=== PATIENT | female | born 1940 | race Caucasian/White ===

== ENCOUNTER → 2019-03-14 | Outpatient (CLI) | payer MEDICARE, BC ==
--- NOTE | 2019-03-14 18:45 | US ---
EXAMINATION TYPE: US kidneys/renal and bladder DATE OF EXAM: 03/14/2019 COMPARISON: CT 04/30/2015 CLINICAL HISTORY: 78-year-old female N28.1 Left renal cyst. TECHNIQUE: Multiple sonographic images of the kidneys and bladder are obtained. FINDINGS: EXAM MEASUREMENTS: Right Kidney: 11.3 X 4.7 X 4.8 cm Left Kidney: 10.5 X 4.8 X 4.5 cm No hydronephrosis on either side. Right Kidney: small cortical cyst medial upper pole 1.0 x 0.5 x 0.6 cm Left Kidney: 3.4 x 4.1 x 4.1 cm cyst mid/lower Bladder: Underdistention of the bladder limits evaluation. There may be mild circumferential wall thi ckening. Bilateral Jets seen: Yes Post Void Residual Volume: 4.6 mL Normal Post Void Residual: Yes IMPRESSION: 1. No hydronephrosis. 2. 4.1 cm simple cyst mid to lower pole left kidney. Tiny 1 cm cyst in the right kidney. 3. Mild circumferential bladder wall thickening may relate to under distention or cystitis. Clinicall y correlate.
== END | disposition home or self-care (01) ==
LOC: RADUSWWP 15:16
PROVIDERS: ATTEND Urology
DX: N28.1 Cyst of kidney, acquired (principal); N32.89 Other specified disorders of bladder; Z88.0 Allergy status to penicillin
CPT/HCPCS: 76770

== ENCOUNTER → 2021-12-01 | Outpatient (CLI) | payer MEDICARE ==
--- NOTE | 2021-12-02 10:19 | US ---
EXAMINATION TYPE: US kidneys/renal and bladder DATE OF EXAM: 12/01/2021 COMPARISON: 03/14/2019 CLINICAL HISTORY: 81-year-old female R10.9 ABD PAIN,N28.1 RENAL CYST. F/U renal cysts, pt states LUQ pain TECHNIQUE: Multiple sonographic images of the kidneys and bladder are obtained. FINDINGS: EXAM MEASUREMENTS: Right Kidney: 11.5 x 5.3 x 4.5 cm Left Kidney: 10.5 x 5.2 x 4.9 cm Right Kidney: Cyst mid/medial= 1.0 x 0.9 x 0.7 cm Left Kidney: Cyst lower pole= 4.5 x 4.7 x 4.4 cm, slightly larger in size (versus 4.1 cm, previously ) No hydronephrosis on either side. Bladder: Underdistention Limited evaluation. Bilateral Jets seen: No Incidental finding accessory splenule IMPRESSION: No hydronephrosis. A couple renal cysts, largest on the left measuring 4.7 cm has slightly increased in size from 4.1 cm, previously.
== END | disposition home or self-care (01) ==
LOC: RADUSWWP 16:12
PROVIDERS: ATTEND Urology
DX: N28.1 Cyst of kidney, acquired (principal)
CPT/HCPCS: 76770

== ENCOUNTER 2022-10-08 10:37 | Emergency (ER) | payer MEDICARE ==
[2022-10-08 10:47] VITALS: BP 160/74; PULSE 89; RESP 16; TEMP 98.1
--- NOTE | 2022-10-08 11:19 | ED ---
Abdominal Pain HPI - General Chief Complaint: Abdominal Pain Stated Complaint: bilat leg pain Time Seen by Provider: 10/08/22 10:58 Source: patient Mode of arrival: ambulatory Limitations: no limitations - History of Present Illness Initial Comments: This 81-year-old female with a past medical history of diabetes mellitus and hypertension who presents to the emergency department with multiple complaints. Her main complaint is bilateral lower extremity pain. She denies injury. Reports pain over the past 2 years worsening over the past 2 weeks. Reports a burning sensation that starts at her thighs and moves all the way down to her feet. Pain is worse while she is sleeping at night. It is better with activity. Taking Motrin 600 with some relief. She denies numbness and tingling. Denies history of DVT and PE. Denies recent airplane travel or long car rides. Is a former smoker, quit 30 years ago. Patient also reports intermittent burning in her lower abdomen. States it feels like a urinary tract infection which she has history of. Denies burning with urination and blood in the urine however does admit to increased urinary freque ncy and urgency. She denies fever, chills, vomiting, side pain, back pain. Does admit to nausea. Of note, patient and her son mention noncompliance with metformin. Patient does not like how big the pill is. She does not take her medication. She does not check her blood sugar home. She reports last hemoglobin A1c of 12 last month her primary care office. Patient reports increased thirst and decreased appetite. No upper respiratory symptoms, chest pain, SOB. Denies constipation, diarrhea, blood in stool. - Related Data Previous Rx's Medication Instructions Recorded Ibuprofen [Motrin] 800 mg PO Q6HR #20 tab 10/08/22 Allergies Allergy/AdvReac Type Severity Reaction Status Date / Time Penicillins AdvReac Rash/Hives Verified 10/08/22 10:42 Review of Systems ROS Statement: Those systems with pertinent positive or pertinent negative responses have been documented in the HPI. ROS Other: All systems not noted in ROS Statement are negative. Past Medical History Past Medical History: Diabetes Mellitus, Hypertension History of Any Multi-Drug Resistant Organisms: None Reported Past Surgical History: Hysterectomy Past Psychological History: No Psychological Hx Reported Smoking Status: Former smoker Past Alcohol Use History: None Reported Past Drug Use History: None Reported General Exam Limitations: no limitations General appearance: alert, in no apparent distress Head exam: Present: atraumatic, normocephalic, normal inspection Eye exam: Present: normal appearance, PERRL, EOMI. Absent: scleral icterus, conjunctival injection, periorbital swelling Respiratory exam: Present: normal lung sounds bilaterally. Absent: respiratory distress, wheezes, rales, rhonchi, stridor Cardiovascular Exam: Present: regular rate, normal rhythm, normal heart sounds. Absent: systolic murmur, diastolic murmur, rubs, gallop, clicks GI/Abdominal exam: Present: soft, normal bowel sounds. Absent: distended, tenderness, guarding, rebound, rigid Extremities exam: Present: normal inspection, full ROM, normal capillary refill. Absent: tenderness, pedal edema, joint swelling, calf tenderness Neurological exam: Present: alert, oriented X3, CN II-XII intact Psychiatric exam: Present: normal affect, normal mood Skin exam: Present: warm, dry, intact, normal color. Absent: rash Course Vital Signs 10/08/22 10:42 Temperature 98.1 F Pulse Rate 89 Respiratory 16 Rate Blood Pressure 160/74 O2 Sat by Pulse 99 Oximetry Medical Decision Making - Medical Decision Making This 81-year-old female presenting with multiple complaints. Patient looks well and in no apparent distress. No bilateral calf tenderness or other LE tenderness. No overlying skin abnormalities, no swelling. Neurovascularly intact. Full strength. Ultrasound of the bilateral lower extremities with Doppler was obtained and interpreted by me which is negative for DVT. Laboratory studies obtained. There is no leukocytosis. Glucose is 266, peripheral to 80 while at this visit. Liver enzymes are within normal limits. Urinalysis reflects poor blood sugar control with 4+ glucose and 1+ ketones. With complaint of intermittent abdominal burning and noninfectious urine, acute intra-abdominal process could not be ruled out. CT of the abdomen and pelvis with contrast was obtained and interpreted by me which shows hepatic steatosis with subtle contour nodularity, also seen along some portions of the liver, correlate for developing cirrhosis. In addition, there is splenomegaly, large- caliber to the portal vein, and recanalization of umbilical vein. Findings com patible with portal venous hypertension. Patient reports minimal alcohol use, usually a cocktail or 2 on holidays. Results discussed with patient. Pain likely related to neuropathy. I suspect patient is endorsing increased urinary frequency due to uncontrolled diabetes. Patient and I spoke in detail about primary care follow-up for alternative medications for blood sugar control. Patient will also speak with her primary care provider regarding neuropathy like pain. Patient will also be referred to GI specialist for incidental CT findings today. Patient verbalizes understanding. Will send her home with short course Motrin for pain. Dr. Miller is my attending. - Lab Data Result diagrams: 10/08/22 11:15 10/08/22 11:15 Lab Results 10/08/22 10/08/22 10/08/22 Range/Units 11:15 11:15 11:15 WBC 3.8 (3.8-10.6) k/uL RBC 4.71 (3.80-5.40) m/uL Hgb 13.1 (11.4-16.0) gm/dL Hct 38.3 (34.0-46.0) % MCV 81.2 (80.0-100.0) fL MCH 27.7 (25.0-35.0) pg MCHC 34.1 (31.0-37.0) g/dL RDW 14.5 (11.5-15.5) % Plt Count 95 L (150-450) k/uL MPV 8.0 Neutrophils % 63 % Lymphocytes % 26 % Monocytes % 7 % Eosinophils % 2 % Basophils % 1 % Neutrophils # 2.4 (1.3-7.7) k/uL Lymphocytes # 1.0 (1.0-4.8) k/uL Monocytes # 0.3 (0-1.0) k/uL Eosinophils # 0.1 (0-0.7) k/uL Basophils # 0.0 (0-0.2) k/uL Manual Slide Review Performed RBC Morphology Normal Sodium 137 (137-145) mmol/L Potassium 3.9 (3.5-5.1) mmol/L Chloride 105 (98-107) mmol/L Carbon Dioxide 23 (22-30) mmol/L Anion Gap 9 mmol/L BUN 16 (7-17) mg/dL Creatinine 0.50 L (0.52-1.04) mg/dL Est GFR (CKD-EPI)AfAm >90 (>60 ml/min/1.73 sqM) Est GFR (CKD-EPI)NonAf >90 (>60 ml/min/1.73 sqM) Glucose 266 H (74-99) mg/dL Plasma Lactic Acid Breezy 1.2 (0.7-2.0) mmol/L Calcium 9.8 (8.4-10.2) mg/dL Magnesium 1.6 (1.6-2.3) mg/dL Total Bilirubin 0.9 (0.2-1.3) mg/dL AST 24 (14-36) U/L ALT 22 (4-34) U/L Alkaline Phosphatase 116 (38-126) U/L NT-Pro-B Natriuret Pep pg/mL Total Protein 7.8 (6.3-8.2) g/dL Albumin 4.4 (3.5-5.0) g/dL Lipase 239 (23-300) U/L Urine Color Urine Appearance (Clear) Urine pH (5.0-8.0) Ur Specific [place] (1.001-1.035) Urine Protein (Negative) Urine Glucose (UA) (Negative) Urine Ketones (Negative) Urine Blood (Negative) Urine Nitrite (Negative) Urine Bilirubin (Negative) Urine Urobilinogen (<2.0) mg/dL Ur Leukocyte Esterase (Negative) Urine WBC (0-5) /hpf Ur Squamous Epith Cells (0-4) /hpf Coronavirus (PCR) (Not Detectd) 10/08/22 10/08/22 10/08/22 Range/Units 11:15 11:25 11:31 WBC (3.8-10.6) k/uL RBC (3.80-5.40) m/uL Hgb (11.4-16.0) gm/dL Hct (34.0-46.0) % MCV (80.0-100.0) fL MCH (25.0-35.0) pg MCHC (31.0-37.0) g/dL RDW (11.5-15.5) % Plt Count (150-450) k/uL MPV Neutrophils % % Lymphocytes % % Monocytes % % Eosinophils % % Basophils % % Neutrophils # (1.3-7.7) k/uL Lymphocytes # (1.0-4.8) k/uL Monocytes # (0-1.0) k/uL Eosinophils # (0-0.7) k/uL Basophils # (0-0.2) k/uL Manual Slide Review RBC Morphology Sodium (137-145) mmol/L Potassium (3.5-5.1) mmol/L Chloride (98-107) mmol/L Carbon Dioxide (22-30) mmol/L Anion Gap mmol/L BUN (7-17) mg/dL Creatinine (0.52-1.04) mg/dL Est GFR (CKD-EPI)AfAm (>60 ml/min/1.73 sqM) Est GFR (CKD-EPI)NonAf (>60 ml/min/1.73 sqM) Glucose (74-99) mg/dL Plasma Lactic Acid Breezy (0.7-2.0) mmol/L Calcium (8.4-10.2) mg/dL Magnesium (1.6-2.3) mg/dL Total Bilirubin (0.2-1.3) mg/dL AST (14-36) U/L ALT (4-34) U/L Alkaline Phosphatase (38-126) U/L NT-Pro-B Natriuret Pep 33 pg/mL Total Protein (6.3-8.2) g/dL Albumin (3.5-5.0) g/dL Lipase (23-300) U/L Urine Color Light Yellow Urine Appearance Clear (Clear) Urine pH 6.0 (5.0-8.0) Ur Specific [place] 1.010 (1.001-1.035) Urine Protein Negative (Negative) Urine Glucose (UA) 4+ H (Negative) Urine Ketones 1+ H (Negative) Urine Blood Negative (Negative) Urine Nitrite Negative (Negative) Urine Bilirubin Negative (Negative) Urine Urobilinogen <2.0 (<2.0) mg/dL Ur Leukocyte Esterase Trace H (Negative) Urine WBC 2 (0-5) /hpf Ur Squamous Epith Cells 1 (0-4) /hpf Coronavirus (PCR) Not Detected (Not Detectd) Disposition Clinical Impression: Bilateral leg pain, Neuropathy, Abdominal pain, Nausea, Splenomegaly, Hepatic steatosis Disposition: HOME SELF-CARE Condition: Good Instructions (If sedation given, give patient instructions): Diabetic Peripheral Neuropathy (ED), Type 2 Diabetes in the Older Adult (ED) Additional Instructions: Please follow up with GI specialist regarding liver changes and increased spleen size. Please do not take part in the contact sports or any strenuous physical activity until cleared by GI specialist. Follow-up with primary care provider in one to 2 days. Talk with them about other options for blood sugar control as he did not like taking her metformin. Also talk to them about a medication you can start for neuropathy. Take Motrin as directed for pain. Return to the emergency department if you experience new, concerning, or worsening symptoms. Prescriptions: Ibuprofen [Motrin] 800 mg PO Q6HR #20 tab Is patient prescribed a controlled substance at d/c from ED?: No Referrals: Nonstaff,Physician [REFERRING] - 1-2 days Mariajose Paul MD [STAFF PHYSICIAN] - 1-2 days
[2022-10-08] MEDS ORDERED: ONDANSETRON 4 MG/2 ML VIAL IVP STA (11:20)
[2022-10-08] MEDS ORDERED: KETOROLAC 15 MG/ML 1 ML VIAL IVP STA (11:24)
[2022-10-08 11:32] LABS: Basophils % (A) 1 %; Eosinophils # (A) 0.1 k/uL (0-0.7); Eosinophils % (A) 2 %; HCT 38.3 % (34.0-46.0); HGB 13.1 gm/dL (11.4-16.0); Lymphocytes % (A) 26 %; MCH 27.7 pg (25.0-35.0); MCHC 34.1 g/dL (31.0-37.0); MCV 81.2 fL (80.0-100.0); Monocytes # (A) 0.3 k/uL (0-1.0); Monocytes % (A) 7 %; Neutrophils # (A) 2.4 k/uL (1.3-7.7); Neutrophils % (A) 63 %; RBC 4.71 m/uL (3.80-5.40); RDW 14.5 % (11.5-15.5); WBC 3.8 k/uL (3.8-10.6)
[2022-10-08 11:38] LABS: Appearance,Urine Clear (Clear); Bilirubin,Urine Negative (Negative); Blood,Urine Negative (Negative); Color,Urine Light Yellow; Glucose,Urine (UA) 4+ (Negative); Ketones,Urine 1+ (Negative); Leukocyte Esterase,Urine Trace (Negative); Nitrite,Urine Negative (Negative); Protein,Urine Negative (Negative); Squamous Epithelial Cell,Urine 1 /hpf (0-4); Urobilinogen,Urine <2.0 mg/dL (<2.0); WBC,Urine 2 /hpf (0-5)
[2022-10-08 11:45] LABS: ALT 22 U/L (4-34); AST 24 U/L (14-36); African American GFR (CKD) >90 (>60 ml/min/1.73 sqM); Albumin 4.4 g/dL (3.5-5.0); Alkaline Phosphatase 116 U/L (38-126); Anion Gap 9 mmol/L; Blood Urea Nitrogen 16 mg/dL (7-17); Calcium 9.8 mg/dL (8.4-10.2); Carbon Dioxide 23 mmol/L (22-30); Chloride 105 mmol/L (98-107); Glucose 266 mg/dL (74-99); Lipase 239 U/L (23-300); Magnesium 1.6 mg/dL (1.6-2.3); Non-African American GFR(CKD) >90 (>60 ml/min/1.73 sqM); Potassium 3.9 mmol/L (3.5-5.1); Sodium 137 mmol/L (137-145); Total Bilirubin 0.9 mg/dL (0.2-1.3); Total Protein 7.8 g/dL (6.3-8.2)
[2022-10-08] MEDS ORDERED: SODIUM CHLORIDE 0.9% 1,000 ML IV STA (12:28)
--- NOTE | 2022-10-08 12:29 | US ---
EXAMINATION TYPE: US venous doppler duplex LE BI DATE OF EXAM: 10/08/2022 12:18 PM COMPARISON: NONE CLINICAL HISTORY: 81-year-old female pain in legs x 2 years SIDE PERFORMED: Bilateral TECHNIQUE: The lower extremity deep venous system is examined utilizing real time linear array sonog bubba with graded compression, doppler sonography and color-flow sonography. FINDINGS: VESSELS IMAGED: Common Femoral Vein Deep Femoral Vein Greater Saphenous Vein * Femoral Vein Popliteal Vein Small Saphenous Vein * Proximal Calf Veins (* superficial vessels) Right Leg: Negative for DVT Left Leg: Negative for DVT IMPRESSION: No evidence for DVT within the bilateral lower extremities imaged from the groin to the upper calves.
[2022-10-08 12:34] LABS: Platelet Count 95 k/uL (150-450)
[2022-10-08 12:37] LABS: RBC Morphology Normal
--- NOTE | 2022-10-08 13:48 | CT ---
EXAMINATION TYPE: CT abdomen pelvis w con DATE OF EXAM: 10/08/2022 COMPARISON: 04/30/2015 HISTORY: 81 year-old female lower abdominal burning and bilateral leg swelling. TECHNIQUE: Contiguous axial scanning of the abdomen and pelvis following administration of 100 ml Iso jaycee 300 IV contrast. Delayed images through the kidneys and coronal/sagittal reconstructions perform ed. CT DLP: 671.4 mGycm Automated exposure control for dose reduction was used. FINDINGS: Heart borderline in size without pericardial effusion. Some emphysematous change in strandy atelectas is or scarring in the lower lungs. A 4 mm posterior left lower lobe pulmonary nodule remains unchanged compatible with a benign etiology . No pleural effusion. Liver shows diffusely diminished attenuation. There is subtle contour nodularity on some of the image s. Main portal vein dilated up to 1.7 cm. Splenic vein dilated up to 1.2 cm. Portal venous system is patent on the delayed scan. Similar prominent bile duct. Recanalization of the umbilical vein noted. Cholecystectomy clips. Mild low density thickening right adrenal gland without discrete nodularity. Left adrenal gland and pancreas within normal limits. Bilateral renal cortical cysts, small on the right kidney and measuring up to 4.8 cm and the left kid anibal versus 3.4 cm, previously. Spleen is enlarged measuring 16.5 cm versus 14.4 cm, previously. Moderate atherosclerotic calcifications infrarenal abdominal aorta without aneurysm. Some collateral vessels/varices are present in the right side of the mesentery. No dilated small bowel, free fluid, or free air. No mesenteric or retroperitoneal lymphadenopathy. Appendix is not clearly visualized. There is mild to moderate stool. No pericolonic inflammatory alvarado ge. Bladder is urine distended. Uterus surgically absent. Neither ovary clearly seen. Multiple pelvic phl ebolith are noted. No abnormal fluid collection in the pelvis or pelvic lymphadenopathy. Bones: Moderate degenerative change of the hips. Moderate degenerative change of the SI joints. Hyper trophic facet arthropathy mid to lower lumbar spine. Mild degenerative disc disease with disc bulging throughout. IMPRESSION: 1. HEPATIC STEATOSIS. HOWEVER, THERE IS SUBTLE CONTOUR NODULARITY ALSO SEEN ALONG SOME PORTIONS OF TH E LIVER. CORRELATE FOR DEVELOPING CIRRHOSIS. 2. IN ADDITION, THERE IS SPLENOMEGALY (INCREASED TO 16.5 CM FROM 14.4 CM, PREVIOUSLY), LARGE CALIBER TO THE PORTAL VEIN, AND RECANALIZATION OF THE UMBILICAL VEIN. FINDINGS COMPATIBLE WITH PORTAL VENOUS HYPERTENSION. RECOMMEND APPROPRIATE GI/HEPATOLOGY REFERRAL.
== END 2022-10-08 14:34 | disposition home or self-care (01) ==
LOC: EC 10:37
DX: M79.605 Pain in left leg (principal); M79.604 Pain in right leg; E11.40 Type 2 diabetes mellitus with diabetic neuropathy, unspecified; R11.0 Nausea; R16.1 Splenomegaly, not elsewhere classified; K76.0 Fatty (change of) liver, not elsewhere classified; I10 Essential (primary) hypertension; Z87.891 Personal history of nicotine dependence; Z79.899 Other long term (current) drug therapy; Z88.0 Allergy status to penicillin; Z20.822 Contact with and (suspected) exposure to COVID-19
CPT/HCPCS: 99284 ×2; 96374 ×2; 96375 ×2; 96361 ×4; 36415; 83880; 80053; 83605; 83690; 83735; 85025; 81001; 87635; 93970; 74177; J2405; J1885; Q9967

== ENCOUNTER → 2023-10-27 | Outpatient (CLI) | payer MEDICARE ==
--- NOTE | 2023-10-27 10:02 | US ---
EXAMINATION TYPE: US abdomen complete DATE OF EXAM: 10/27/2023 COMPARISON: NONE CLINICAL INDICATION: Female, 83 years old with history of R16.1 SPLENOMEGALY; Splenomegaly. Abdominal pain. Cholecystectomy TECHNIQUE: Multiple sonographic images of the abdomen are obtained. FINDINGS: EXAM MEASUREMENTS: Liver Length: 15.9 cm Gallbladder: Surgically absent CBD: 0.8 cm Spleen: 13.9 cm but 7 cm thick Right Kidney: 10.9 x 5.5 x 4.5 cm Left Kidney: 9.6 x 4.2 x 3.9 cm VENDING ATTENDANT NOTES: Technical limitations due to large amount of overlying bowel gas Pancreas: Only portions of the pancreatic body are seen. Head and tail obscured by bowel gas shadowi ng. Liver: wnl Gallbladder: Surgically absent Evidence for sonographic Dalton's sign: no CBD: Mildly dilated, acceptable given patient's age and postcholecystectomy status. Spleen: Mildly enlarged. Also, accessory splenule = 0.9 x 1.2 x 1.0cm Right Kidney: No evidence of hydronephrosis Left Kidney: A lower pole cortical cyst measures 4.6 x 4.5 x 4.4cm. No hydronephrosis. Upper IVC: wnl Abd Aorta: Atherosclerotic calcifications noted IMPRESSION: 1. Splenomegaly at 13.9 cm but measuring 7.0 cm thick. 2. Incidental 4.6 cm left lower pole renal cortical cyst.
== END | disposition home or self-care (01) ==
LOC: RADUSWWP 08:59
PROVIDERS: ATTEND Internal Medicine
DX: N28.1 Cyst of kidney, acquired (principal); R16.1 Splenomegaly, not elsewhere classified
CPT/HCPCS: 76700

== ENCOUNTER → 2024-01-05 | Day surgery (SDC) | payer MEDICARE ==
[~2024-01-05] MED LIST: LIDOCAINE 1% (10MG/ML) FOR IV START INTRADERMA PRN; LIDOCAINE 1% INJ 10MG/ML (20 ML MDV) ONE; ONDANSETRON 4 MG/2 ML VIAL IVP PRN; PROPOFOL 10 MG/ML 20 ML VIAL IV ONE
[2024-01-05] MEDS: LACTATED RINGERS 1,000 ML IV SCH (06:55)
[2024-01-05 07:05] LABS: Glucose,Whole Blood 181 mg/dL (70-110)
[2024-01-05 07:57] LABS: Glucose,Whole Blood 199 mg/dL (70-110)
[2024-01-05 08:03] LABS: Basophils # (A) 0.1 k/uL (0-0.2); Basophils % (A) 1 %; Eosinophils # (A) 0.2 k/uL (0-0.7); Eosinophils % (A) 4 %; HCT 38.4 % (34.0-46.0); HGB 13.3 gm/dL (11.4-16.0); Lymphocytes # (A) 1.2 k/uL (1.0-4.8); Lymphocytes % (A) 26 %; MCH 30.4 pg (25.0-35.0); MCHC 34.6 g/dL (31.0-37.0); MCV 87.7 fL (80.0-100.0); Mean Platelet Volume 8.8; Monocytes # (A) 0.3 k/uL (0-1.0); Monocytes % (A) 7 %; Neutrophils # (A) 2.7 k/uL (1.3-7.7); Neutrophils % (A) 59 %; RBC 4.38 m/uL (3.80-5.40); RDW 14.6 % (11.5-15.5); Reticulocyte % 2.1 % (0.5-2.0); WBC 4.6 k/uL (3.8-10.6)
[2024-01-05 08:10] VITALS: BP 134/75; PULSE 71; RESP 16
[2024-01-05 08:42] LABS: Platelet Count 88 k/uL (150-450)
[2024-01-05 08:45] LABS: RBC Morphology Normal
--- NOTE | 2024-01-05 09:04 | OP ---
OPERATIVE REPORT DATE OF SERVICE : PROCEDURE PERFORMED: Bone marrow biopsy under general and local sedation. DESCRIPTION OF PROCEDURE: Following administration of general sedation, Ms. Brush was placed in the left lateral decubitus position with the right posterior and superior iliac spine and subsequently posterior superior iliac crest palpated. The area was anesthetized with 3 swabs of Betadine and 3 swabs of alcohol. Following application of sterile drape, 1% lidocaine was applied locally to the skin and to the periosteum. A 0.3 cm incision was then placed in the skin, followed by advancement of 4-inch Jamshidi needle into the bone marrow. Initial aspiration did not reveal any aspirate. On the third attempt, a 1.5 cm core sample was obtained. Additional attempt obtaining aspirate was successful and obtained approximately 20 mL of aspirate with spicules. Samples will be sent for morphology, flow, FISH, cytogenetics, and NGS. PREOPERATIVE DIAGNOSIS: Thrombocytopenia. POSTOPERATIVE DIAGNOSIS: Thrombocytopenia. She was returned to the postop area in stable condition with less than 1 mL of blood loss. MMODL / IJN: [id number] /
== END ==
LOC: OR 06:17
PROVIDERS: ATTEND Internal Medicine
DX: D69.6 Thrombocytopenia, unspecified (principal); D50.9 Iron deficiency anemia, unspecified; E11.9 Type 2 diabetes mellitus without complications; I10 Essential (primary) hypertension; Z88.0 Allergy status to penicillin; Z79.4 Long term (current) use of insulin; Z79.899 Other long term (current) drug therapy
CPT/HCPCS: 85025; 85045; 38222; J2001; J2704

== ENCOUNTER → 2025-03-13 | Outpatient (CLI) | payer MEDICARE ==
--- NOTE | 2025-03-13 14:06 | US ---
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 FINDINGS: EXAM MEASUREMENTS: Liver Length: 13.6 cm Gallbladder Wall: Surgically absent CBD: 1 cm, color Doppler imaging was utilized to isolate the common bile duct for measurement. Spleen: 16.2 cm Right Kidney: 10.8 x 5.3 x 5.2 cm Left Kidney: 10.7 x 5.2 x 4.6 cm RUG FRAME MOUNTER NOTES: Pancreas: Tail obscured by overlying bowel gas Liver: wnl, no dilated ducts, masses or cysts. Gallbladder: Surgically absent CBD: wnl Spleen: Enlarged again. Right Kidney: wnl, No hydronephrosis, calculi or masses seen Left Kidney: No hydronephrosis or calculus. Redemonstration of anechoic lower pole cortical cyst manuel suring 5.6 x 5.0 x 4.9 cm. Upper IVC: wnl Abd Aorta: Atherosclerotic calcification is noted. The liver is homogenous. The intrahepatic portion of the IVC and proximal abdominal aorta are within normal limits. Gallbladder is surgically absent. Common bile duct is within normal limits for patien t's age. The visualized portions of the pancreas are homogenous. The spleen is unremarkable. Kidne ys are symmetric and free of hydronephrosis. Redemonstration of simple appearing lower pole left michell l cyst. IMPRESSION: 1. Increased splenomegaly measuring up to 16.2 cm, previously 13.9 cm. 2. Increased size of simple appearing left lower pole renal cyst. 3. Post cholecystectomy changes. [facility], , 03/13/2025 2:04 PM
[2025-03-13 19:39] LABS: Basophils # (A) 0.05 X 10*3/uL (0.00-0.10); Eosinophils # (A) 0.11 X 10*3/uL (0.04-0.35); Eosinophils % (A) 4.4 %; HCT 29.3 % (37.2-46.3); Lymphocytes # (A) 0.66 X 10*3/uL (0.90-5.00); Lymphocytes % (A) 26.3 %; MCH 26.7 pg (27.0-32.0); MCHC 30.7 g/dL (32.0-37.0); MCV 86.9 FL (80.0-97.0); Mean Platelet Volume 10.9 FL (9.5-12.2); Monocytes # (A) 0.25 X 10*3/uL (0.20-1.00); NRBC Per 100 WBC 0 X 10*3/uL (0.00-0.01); Neutrophils # (A) 1.42 X 10*3/uL (1.80-7.70); Neutrophils % (A) 56.5 %; Platelet Count 88 X 10*3/uL (140-440); RBC 3.37 X 10*6/uL (4.10-5.20); RDW 14.6 % (11.5-14.5); WBC 2.51 X 10*3/uL (4.50-10.00)
[2025-03-13 20:15] LABS: ALT 25 U/L (8-44); AST 26 U/L (13-35); Albumin 4.2 g/dL (3.8-4.9); Albumin/Globulin Ratio 1.31 Ratio (1.60-3.17); Alkaline Phosphatase 100 U/L (41-126); Blood Urea Nitrogen 16.8 mg/dL (9.0-27.0); Carbon Dioxide 22.3 mmol/L (21.6-31.8); Chloride 108 mmol/L (96-109); Globulin 3.2 g/dL (1.6-3.3); Glucose 202 mg/dL (70-110); Potassium 4.3 mmol/L (3.5-5.5); Sodium 141 mmol/L (135-145); Total Bilirubin 0.5 mg/dL (0.3-1.2); Total Protein 7.4 g/dL (6.2-8.2)
== END | disposition home or self-care (01) ==
LOC: RADUSWWP 12:47
PROVIDERS: ATTEND Student in an Organized Health Care Education/Training Program
DX: K44.9 Diaphragmatic hernia without obstruction or gangrene (principal); K27.9 Peptic ulcer, site unspecified, unspecified as acute or chronic, without hemorrhage or perforation; R16.1 Splenomegaly, not elsewhere classified; N28.1 Cyst of kidney, acquired; Z90.49 Acquired absence of other specified parts of digestive tract
CPT/HCPCS: 76700; 80053; 82105; 85025